=== PATIENT | male | born 1960 | race Caucasian/White ===

== ENCOUNTER 2021-07-17 12:38 | Emergency (ER) | payer BC, MEDICAID ==
--- NOTE | 2021-07-17 13:16 | EDM.PDOC ---
ED HPI GENERAL MEDICAL PROBLEM - General Chief Complaint: Lower Extremity Injury/Pain Stated Complaint: RIGHT HIP PAIN Time Seen by Provider: 07/17/21 13:16 Source of Information: Reports: Patient History Limitations: Reports: No Limitations - History of Present Illness INITIAL COMMENTS - FREE TEXT/NARRATIVE: Dave is a 60 year old male whom is a known smoker presenting to ER with with progressive worsening right hip pain over the last weeks. Dave rates pain 7 out of 10. Dave denies fall or recalls any specific injury to cause the pain. - Related Data Allergies Allergy/AdvReac Type Severity Reaction Status Date / Time No Known Allergies Allergy Verified 07/17/21 13:18 Home Meds: Home Meds predniSONE [Prednisone] 10 mg PO BID 10 Days #30 tablet 07/17/21 [Rx] Past Medical History - Past Surgical History Other Musculoskeletal Surgeries/Procedures:: left elbow Review of Systems - Review of Systems Review Of Systems: Comprehensive ROS is negative, except as noted in HPI. ED EXAM, GENERAL - Physical Exam Exam: See Below Exam Limited By: No Limitations General Appearance: Alert, WD/WN, Moderate Distress (when bearing weight on right leg ) Eye Exam: Bilateral Eye: Normal Inspection Ears: Hearing Grossly Normal Nose: Normal Inspection Throat/Mouth: Normal Voice, No Airway Compromise Neck: Supple Respiratory/Chest: No Respiratory Distress, Other (course breath sounds note, reported heavy smoker) Cardiovascular: Normal Peripheral Pulses, Regular Rate, Rhythm GI/Abdominal: Normal Bowel Sounds, Non-Tender. No: Distended, Guarding, Rigid, Rebound, Tender, Hernia Back Exam: Normal Inspection, Full Range of Motion. No: Muscle Spasm, Paraspinal Tenderness (No pain to palpation of right oblique muscles, SI joint or buttocks. ) Extremities: Normal Inspection, Normal Range of Motion, Leg Pain (No pain to palpation of right hip flexor, lateral IT band, lateral hip bursa or any specific location but described as deeper generalized pain. ) Neurological: Alert, Oriented, CN II-XII Intact, Normal Cognition. No: Normal Gait (guarded and stiff ) Psychiatric: Normal Mood, Flat Affect Skin Exam: Warm, Dry, Intact, Normal Color, No Rash Course - Vital Signs Last Recorded V/S: Last Vital Signs Temp 36.7 C 07/17/21 13:23 Pulse 76 07/17/21 13:23 Resp 16 08/22/21 13:23 BP 166/88 H 07/17/21 13:29 Pulse Ox 96 07/17/21 13:23 - Orders/Labs/Meds Orders: Active Orders 24 hr Category Date Time Status Femur Min 2V Rt [CR] Stat Exams 07/17/21 13:27 Taken - Radiology Interpretation Free Text/Narrative:: Right Femur/hip/[employer] views: No acute fracture or joint concerns noted to explain symptoms. Dave is requesting a steroid shot, but I explained If I can not localize the specific muscle or skeletal structure which is causing the pain and localized steroids shot is not beneficial. I discussed a short course of oral steroids and recommended clinic appointment to follow-up and possible PT referral if not improving. More advanced imaging could be considered if symptom are longer than 6 weeks or systemic symptoms like fever or acute Illness. Departure - Departure Time of Disposition: 14:38 Disposition: Home, Self-Care 01 Clinical Impression: Strain of right hip - Discharge Information Prescriptions: predniSONE [Prednisone] 10 mg PO BID 10 Days #30 tablet Instructions: Muscle Strain, Hip Pain Referrals: PCP,None [Primary Care Provider] - Forms: ED Department Discharge Additional Instructions: 1. Prednisone 10 mg #30 ([employer]yMed) 2 tablets every am and pm x 5 days then 1 tablet every am and pm until gone for acute inflammation and pain with food. 2. Tylenol Arthritis 650mg 1-2 tablets every 6-8 hrs for mild to moderate pain. 3. Naproxen 220-440 mg every 8-12 hrs for pain if needed (no at same time as prednisone due to stomach concerns). 4. Added to referral to list to [facility] in [place] for repeat evaluation in 1-2 weeks to discuss symptoms and possible referral to PT. Per ER discussion: Steroid shot requested, but if pain can note be localized the specific muscle or skeletal structure which is causing the pain and localized steroids shot is not beneficial. I discussed a short course of oral steroids and recommended clinic appointment to follow-up and possible PT referral if not improving. More advanced imaging could be considered if symptom are longer than 6 weeks or systemic symptoms like fever or acute Illness. Sepsis Event Note (ED) - Focused Exam Vital Signs: Vital Signs Temp Pulse Resp BP Pulse Ox 07/17/21 13:29 166/88 H 07/17/21 13:23 36.7 C 76 16 168/97 H 96 07/17/21 13:16 36.7 C 76 16 168/97 H 96 - My Orders Last 24 Hours: My Active Orders 07/17/21 13:27 Femur Min 2V Rt [CR] Stat - Assessment/Plan Last 24 Hours: My Active Orders 07/17/21 13:27 Femur Min 2V Rt [CR] Stat
[2021-07-17 13:19] VITALS: PULSE 76
[2021-07-17 13:30] VITALS: BP 166/88
--- NOTE | 2021-07-18 10:48 | CR ---
Femur Min 2V Rt CLINICAL HISTORY: Pain FINDINGS: There is no acute fracture within the femur. No destructive changes are seen. Impression: Negative
== END 2021-07-17 14:50 | disposition home or self-care (01) ==
LOC: JP.ED 12:38
DX: S76.011A Strain of muscle, fascia and tendon of right hip, initial encounter (principal); F17.200 Nicotine dependence, unspecified, uncomplicated; X58.XXXA Exposure to other specified factors, initial encounter
CPT/HCPCS: 73552-26-LT; 73552-RT; 99283-25